=== PATIENT | male | born 1990 | race Caucasian/White ===

== ENCOUNTER 2016-06-29 06:02 | Emergency (ER) | payer OTHER ==
[2016-06-29] MEDS ORDERED: ETOMIDATE INJ 20MG/10ML VIAL ONE (06:03)
[2016-06-29] MEDS ORDERED: SUCCINYLCHOLINE 100 MG/5 ML SYRINGE (J0330) ONE (06:03)
[2016-06-29] MEDS ORDERED: MORPHINE 10 MG/ML 1ML VIAL As Ordered ONE (06:22)
[2016-06-29] MEDS ORDERED: HYDROmorphone HCL 1 MG/ML SYRINGE (J1170) As Ordered ONE ×2 (06:27→06:32)
[2016-06-29] MEDS ORDERED: MIDAZOLAM INJ 5 MG/ML VIAL (J2250) As Ordered ONE (06:34)
[2016-06-29] MEDS ORDERED: MIDAZOLAM HCL 100 MG in D5W 80 ML IV SCH (06:45)
[2016-06-29] MEDS ORDERED: REFRIGERATOR IV KEYS XX PRN (06:45)
--- NOTE | 2016-06-29 07:27 | REP ---
Clinical: Status post intubation. Comparison: None. Findings: Endotracheal tube approximately 4 cm above the cl. Right IJ line with tip in the SVC. Mediastinum and cardiac silhouette normal. Lung lim are clear and without consolidation, effusion, or pneumothorax. Skeletal structures intact. Impression: Lines and tubes in satisfactory position. No acute cardiopulmonary process. Signed by Yevgeniy Avila MD 06/29/2016 07:19 A
[2016-06-29 07:49] LABS: ABG BASE EXCESS -5.5 (-2.0-2.0); ABG DEVICE NASAL CANN; ABG HCO3 21.7 MEQ/L (22.0-26.0); ABG PARTIAL PRESSURE CO2 48.8 mmHg (35.0-45.0); ABG PARTIAL PRESSURE O2 392.6 mmHg (75.0-100.0); ABG TOTAL CO2 23.2 MEQ/L (22.0-29.0); ABG pH (ARTERIAL) 7.266 UNITS (7.350-7.450)
[2016-06-29 07:58] LABS: MEAN CORPUSCULAR HEMOGLOBIN 29.3 pg (27.0-33.0); MEAN CORPUSCULAR HGB CONC 32.8 g/dl (32.0-36.5); MEAN CORPUSCULAR VOLUME 89.4 fl (80.0-96.0); RED CELL DISTRIBUTION WIDTH 12.4 % (11.5-14.5); WHITE BLOOD COUNT 11.4 K/mm3 (4.0-10.0)
[2016-06-29 08:24] LABS: ANION GAP 10 MEQ/L (8-16); BLOOD UREA NITROGEN 17 MG/DL (7-18); CALCIUM LEVEL 7.6 MG/DL (8.5-10.1); CARBON DIOXIDE LEVEL 25 MEQ/L (21-32); CHLORIDE LEVEL 109 MEQ/L (98-107); CREATININE FOR GFR 1.09 MG/DL (0.70-1.30); GLOMERULAR FILTRATION RATE > 60.0 (>60); GLUCOSE, FASTING 115 MG/DL (70-105); SODIUM LEVEL 144 MEQ/L (136-145)
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
[2016-06-29] MEDS ORDERED: METAL LOCK LOOP XX ONE (13:05)
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
== END 2016-06-29 08:33 | disposition short-term general hospital (02) ==
LOC: M ED 06:02
DX: J70.5 Respiratory conditions due to smoke inhalation (principal); T21.23XA Burn of second degree of upper back, initial encounter; T22.032A Burn of unspecified degree of left upper arm, initial encounter; T22.031A Burn of unspecified degree of right upper arm, initial encounter; X00.0XXA Exposure to flames in uncontrolled fire in building or structure, initial encounter; Y92.018 Other place in single-family (private) house as the place of occurrence of the external cause; Y93.89 Activity, other specified; Y99.8 Other external cause status; K21.9 Gastro-esophageal reflux disease without esophagitis
CPT/HCPCS: 31500; 36415; 36556; 36600; 51702; 71010; 80048; 82550; 82803; 85027; 96374; 96375; 99291; 99292; J0330; J1170; J2250

== ENCOUNTER → 2016-10-02 | Outpatient (RCR) | payer OTHER | LOC: M PT 09-25 07:16 | PROVIDERS: ATTEND Physician Assistant | DX: Z51.89 Encounter for other specified aftercare (principal); T30.0 Burn of unspecified body region, unspecified degree ==

== ENCOUNTER 2016-10-30 07:00 | Outpatient (RCR) | payer OTHER | END 2016-11-01 | LOC: M PT 07:00 | PROVIDERS: ATTEND Physician Assistant | DX: Z51.89 Encounter for other specified aftercare (principal); T30.0 Burn of unspecified body region, unspecified degree ==

== ENCOUNTER 2016-12-23 07:28 | Emergency (ER) | payer OTHER ==
[~2016-12-23] VITALS: Ht 175.3 cm; Wt 95.5 kg
[2016-12-23] MEDS ORDERED: FLUO10CA9 PO (07:54)
[2016-12-23] MEDS ORDERED: DICL50TAB PO (07:54)
[2016-12-23] MEDS ORDERED: D3-5CAP PO (07:54)
[2016-12-23] MEDS ORDERED: GABA-282 PO (07:54)
[2016-12-23] MEDS ORDERED: TYLE500T78 PO (07:55)
[2016-12-23 09:07] LABS: ANION GAP 8 MEQ/L (8-16); BLOOD UREA NITROGEN 15 MG/DL (7-18); CALCIUM LEVEL 8.5 MG/DL (8.5-10.1); CARBON DIOXIDE LEVEL 27 MEQ/L (21-32); CHLORIDE LEVEL 107 MEQ/L (98-107); CREATININE FOR GFR 0.97 MG/DL (0.70-1.30); GLOMERULAR FILTRATION RATE > 60.0 (>60); GLUCOSE, FASTING 94 MG/DL (70-105); POTASSIUM SERUM 4.5 MEQ/L (3.5-5.1); SODIUM LEVEL 142 MEQ/L (136-145)
[2016-12-23] MEDS ORDERED: PRED20TA PO (11:27)
--- NOTE | 2016-12-23 11:43 | REP ---
MRA BRAIN WITHOUT CONTRAST: HISTORY: Facial palsy. 3D [id number] MR angiography was performed at the level of the [place] of [place]. There is no aneurysm, arteriovenous malformation or atherosclerotic lesion. The major intracranial vessels are patent. The left vertebral artery is dominant. IMPRESSION: Normal MRA Brain. Signed by Orestes Trevino MD 12/23/2016 11:56 A
--- NOTE | 2016-12-23 11:46 | REP ---
MRI BRAIN WITHOUT CONTRAST: HISTORY: Facial droop. A single punctate focus of increased bone density on T2-weighted images is present in the subcortical white matter of the left frontal lobe. There is no intraparenchymal hemorrhage, infarct, mass or midline shift. The sella turcica is partially empty. The ventricular system is normal in appearance. A merissa cisterna magna is present. There is no extracerebral collection. The sinuses are clear. IMPRESSION: There is a single punctate focus of increased signal intensity in the subcortical white matter of the left frontal lobe. This is a nonspecific finding. Signed by Orestes Trevino MD 12/23/2016 11:56 A
[2016-12-23] MEDS ORDERED: BACIOIN23 OP (12:12)
[2016-12-23] MEDS ORDERED: VALA1TAB2 PO (12:15)
[2016-12-23 12:32] VITALS: BP 120/90
--- NOTE | 2016-12-23 12:57 | ED PDOC ---
Post-Departure Follow-Up chika gonzalez faxed formal report of mri of brain for fu Dinesh Torres MD Dec 23, 2016 12:57
[2016-12-25 00:06] LABS: Lyme Disease IgG/IgM Antibodie <0.91 ISR (0.00-0.90); Lyme Disease IgM Ab Quantitati <0.80 index (0.00-0.79)
== END 2016-12-23 12:33 | disposition home or self-care (01) ==
LOC: M ED 07:28
DX: G51.0 Bell's palsy (principal); R51 Headache; Z79.899 Other long term (current) drug therapy